=== PATIENT | male | born 2000 | race Caucasian/White ===

== ENCOUNTER 2021-08-28 10:34 | Emergency (ER) | payer OTHER ==
[~2021-08-28] VITALS: Ht 177.8 cm; Wt 68.1 kg
[2021-08-28] MEDS ORDERED: ACET500T15 PO (10:55)
[2021-08-28] MEDS ORDERED: IBUPROFEN 800 MG TAB PO ONE (12:25)
[2021-08-28] MEDS ORDERED: predniSONE 20 MG TAB PO ONE (12:25)
[2021-08-28] MEDS ORDERED: AMOX500C PO (13:13)
[2021-08-28] MEDS ORDERED: MEDR4PAK PO (13:13)
[2021-08-28 13:28] VITALS: BP 125/75
== END 2021-08-28 13:29 | disposition home or self-care (01) ==
LOC: M ED 10:34
DX: J03.00 Acute streptococcal tonsillitis, unspecified (principal); F17.200 Nicotine dependence, unspecified, uncomplicated; Z79.899 Other long term (current) drug therapy
CPT/HCPCS: 87430; 99283; J7512

== ENCOUNTER 2023-08-17 16:25 | Emergency (ER) | payer OTHER ==
[~2023-08-17] VITALS: Ht 177.8 cm; Wt 75.0 kg
[~2023-08-17 16:25] MED LIST: ACET500T15 PO; AMOX500C PO; MEDR4PAK PO
[2023-08-17] MEDS ORDERED: diazePAM 5MG TABLET PO ONE (18:40)
[2023-08-17] MEDS ORDERED: LIDOCAINE 5% (LIDODERM) PATCH TD ONE (18:40)
[2023-08-17] MEDS ORDERED: KETOROLAC 30 MG/ML 1ML VIAL IM ONE (18:40)
[2023-08-17] MEDS ORDERED: KETO10TAB PO (20:17)
[2023-08-17] MEDS ORDERED: CYCL-707 PO (20:17)
[2023-08-17] MEDS ORDERED: LIDO5DIS41 TD (20:17)
[2023-08-17 20:22] VITALS: BP 121/59; TEMP 98.2; O2SAT 98
[2023-08-17] MEDS ORDERED: NORCO, ANEXSIA 5/325MG TABLET (HYDROcodone/ACETAMINOPHEN) PO ONE (20:35)
== END 2023-08-17 20:48 | disposition home or self-care (01) ==
LOC: M ED 16:25 → EDBD 16:25 → M ED 20:48
DX: S39.012A Strain of muscle, fascia and tendon of lower back, initial encounter (principal); M54.9 Dorsalgia, unspecified; Y93.B3 Activity, free weights
CPT/HCPCS: 72128; 72131; 96372; 99284; J1885

== ENCOUNTER → 2024-08-01 | Outpatient (REF) ==
[~2024-08-01] MED LIST changes: +CYCL-707 PO; +KETO10TAB PO; +LIDO5DIS41 TD
== END ==
LOC: M PLAIMG 13:18
PROVIDERS: ATTEND Internal Medicine
DX: R52 Pain, unspecified (principal)